=== PATIENT | male | born 1990 | race Caucasian/White ===

== ENCOUNTER 2021-03-30 20:03 | Emergency (ER) | payer OTHER, BC ==
[~2021-03-30 20:03] MED LIST: Iopamidol-370 76% 500 ML 1 ML ONE
[2021-03-30] MEDS ORDERED: Fentanyl 100 MCG/2 ML VIAL ONE (20:29)
[2021-03-30] MEDS ORDERED: Ondansetron PF 4 MG/2 ML Vial ONE (20:29)
[2021-03-30 21:19] LABS: #Basophils 0.1 thou/uL (0.0-0.2); #Eosinphils 0.1 thou/uL (0.0-0.7); #Lymphocytes 1.9 thou/uL (1.20-3.40); #Monocytes 0.6 thou/uL (0.11-0.59); #Neutrophils 3.9 thou/uL (1.40-6.50); %Basophils 0.8 % (0.0-1.0); %Eosinophils 1.5 % (0.0-10.0); %Lymphocytes 28.7 % (21.0-51.0); Mean Corpuscular HGB CONC 35.1 g/dL (32.0-36.0); Mean Corpuscular Hemoglobin 32.1 pg (27.0-31.0); Mean Corpuscular Volume 91.5 fL (78.0-98.0); Mean Platelet Volume 7.2 fL (7.4-10.4); Platelet Count 195 thou/uL (130-400); RBC Distribution Width 11.4 % (11.5-14.5); Red Blood Cell (RBC) Count 4.69 mill/uL (4.70-6.10); White Blood Cell (WBC) Count 6.5 thou/uL (4.8-10.8)
[2021-03-30 21:43] LABS: ALT (SGPT) 17 U/L (8-55); AST (SGOT) 15 U/L (5-34); Albumin 4.1 g/dL (3.5-5.0); Alkaline Phosphatase 72 U/L (40-110); Anion Gap 12 mmol/L (10-20); BUN (Urea Nitrogen) 13 mg/dL (8.9-20.6); Bilirubin, Total 0.5 mg/dL (0.2-1.2); Calc. Creatinine Clearance 0 mL/min (70-130); Calcium 9.2 mg/dL (7.8-10.44); Carbon Dioxide 27 mmol/L (22-29); Chloride 106 mmol/L (98-107); Globulin 2.6 g/dL (2.4-3.5); Glucose 100 mg/dL (70-105); Potassium 4.7 mmol/L (3.5-5.1); Protein, Total 6.7 g/dL (6.0-8.3); Sodium 140 mmol/L (136-145)
[2021-03-30] MEDS ORDERED: Ketorolac Tromethamine 30 MG/ML VIAL ONE (21:59)
== END 2021-03-30 22:25 | disposition home or self-care (01) ==
LOC: ERS 20:03
DX: S16.1XXA Strain of muscle, fascia and tendon at neck level, initial encounter (principal); M54.50 Low back pain, unspecified; V49.40XA Driver injured in collision with unspecified motor vehicles in traffic accident, initial encounter
CPT/HCPCS: 36415; 70450; 71260; 72125; 74177; 80053; 85025; 96374; 96375; J1885; J2405; J3010; Q9967

== ENCOUNTER 2023-08-03 18:22 | Emergency (ER) | payer OTHER, BC ==
[2023-08-03] MEDS ORDERED: HYDROcodone/Acetaminophen 10/325 mg Tablet ONE (18:34)
[2023-08-03] MEDS ORDERED: Ketorolac Tromethamine 30 MG (1 mL) VIAL ONE (18:35)
== END 2023-08-03 19:34 | disposition home or self-care (01) ==
LOC: ERS 18:22
DX: S96.911A Strain of unspecified muscle and tendon at ankle and foot level, right foot, initial encounter (principal); X50.1XXA Overexertion from prolonged static or awkward postures, initial encounter; Y93.39 Activity, other involving climbing, rappelling and jumping off
CPT/HCPCS: 96374; J1885

== ENCOUNTER 2023-08-18 13:31 | Outpatient (CLI) | payer OTHER | END 2023-08-18 13:32 | disposition home or self-care (01) | LOC: SCSMRI 13:31 | PROVIDERS: ATTEND Nurse Practitioner Family | DX: S99.911D Unspecified injury of right ankle, subsequent encounter (principal); S93.421A Sprain of deltoid ligament of right ankle, initial encounter; S93.491A Sprain of other ligament of right ankle, initial encounter; S90.01XA Contusion of right ankle, initial encounter ==